=== PATIENT | female | born 1955 | race Caucasian/White ===

== ENCOUNTER 2016-09-26 19:09 | Observation (INO) | payer BC, SELFPAY ==
[~2016-09-26] VITALS: Ht 144.8 cm; Wt 83.1 kg
--- NOTE | ~2016-09-26 | HP ---
ADMIT: 09/26/2016 RM/LOC: 416 [facility] MR#: [id number] [address] [address] FELICIA DOUGLAS [address] [place] [address] History and Physical SEX: F AGE: 61 : 1955 DATE OF SERVICE: CHIEF COMPLAINT: Headache. HISTORY OF PRESENT ILLNESS: Felicia is a 61-year-old female, [facility] patient, presents to the Emergency Department with the above complaints. The patient states that last night, while at work at [email or web address], she started experiencing significant headaches. She started having a pulsating sensation in her head, bilateral protestant area. Feeling slightly nauseous, then sought care at Urgent Care. There, she had systolic blood pressures in the 190s and was told to go to the Emergency Department as they also noted some left facial droop. She was evaluated in the Emergency Department. CT scan of the head was negative. They did note slight left facial droop but otherwise no other significant stroke-like findings. Determination was made not to give her any type of thrombolytics at this time. Blood pressure was controlled and we are asked to admit for further workup and management. She really does have a past medical history significant for chronic headaches. Apparently, she has had headaches on a regular basis since concussion she sustained in 2006 when she fell in [place] on an escalator. She states this headache is different. Feels more like a migraine. Having some nausea. She does report that the headache is still there this morning but improved. No chest pain, shortness of breath, or other associated symptoms. PAST MEDICAL HISTORY: Includes posttraumatic headaches, chronic; obesity, severe; peripheral neuropathy, idiopathic; varicose veins; depression; prediabetes. MEDICATIONS: Tylenol. 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 in 2013 from a heart attack. She has three daughters. No alcohol, drug, or tobacco use. Previous smoking history. FAMILY HISTORY: Noncontributory. No history of stroke. REVIEW OF SYSTEMS: A 10-point review of systems was obtained per HPI, otherwise negative. PHYSICAL EXAMINATION: VITAL SIGNS: Blood pressure 150/79, pulse 62, respirations 14, temperature 96.9, 95% on room air. GENERAL: Alert and oriented x3. No acute distress. HEENT: Pupils equal, round, and reactive. Extraocular muscles intact. Throat clear. Trachea midline. HEART: Regular rate and rhythm. No murmurs, rubs, or gallops. LUNGS: Clear to auscultation bilaterally. No wheezes or crackles. ABDOMEN: Soft, nontender, and nondistended. No organomegaly. EXTREMITIES: Without any significant edema. NEUROLOGIC: Cranial nerves II through XII are grossly intact but does have ADMIT: 09/26/2016 RM/LOC: 416 [facility] MR#: [id number] [address] [place] [id number] MISAELFELICIA ALEJANDRA [facility] [place] [address] History and Physical SEX: F AGE: 61 : 1955 some left-sided facial droop mostly noted in the mouth. Speech is otherwise fine. No other focal deficits. LABS AND IMAGING: Essentially all normal. Slight dyslipidemia. Head CT normal. ASSESSMENT: A 61-year-old female with: 1. Headache, likely migraine versus hypertensive urgency. 2. Question of cerebrovascular accident/transient ischemic attack, CT negative. 3. Hypertension. 4. Dyslipidemia. 5. Left facial droop. 6. Obesity. 7. Noncompliance with care. PLAN: We will admit the patient Neuro protocol. Treat her for migraine headache as it seems more consistent with that. I think she has neuro involvement with this. Likely if she remains stable, discharge her on blood pressure medications along with statins, aspirin, and have a followup MRI next week as an outpatient. The patient was in agreement with this plan. Efren Navarrete MD/ pankaj JOB #: [id number] CC: Efren Navarrete, Attending Physician Efren Navarrete, Family Physician
[2016-09-29] MEDS ORDERED: LIPITOR DPS20 MG PO (11:57)
[2016-09-29] MEDS ORDERED: ASA325 MG PO (11:57)
[2016-09-29] MEDS ORDERED: GLUCOPHAGE-DPS500 MG PO (11:57)
[2016-09-29] MEDS ORDERED: ULTRAM DPS50 MG PO (11:57)
[2016-09-29] MEDS ORDERED: ZESTORETIC 10/11 TAB PO (11:57)
[2016-09-29] MEDS ORDERED: FLEXERIL-DPS10 MG PO (11:58)
[2016-09-29] MEDS ORDERED: TYLENOL DPS325 MG PO (11:58)
--- NOTE | 2016-10-14 08:26 | DS ---
ADMIT: 09/26/2016 RM/LOC: 416 [facility] MR#: [id number] [address] [address] ATIF DOUGLAS [address] [place] [address] General Discharge Summary SEX: F AGE: 61 : 1955 ADMISSION DATE: 09/26/2016 DISCHARGE DATE: 09/28/2016 FINAL DIAGNOSES: 1. Acute headache, likely migrainous. 2. Questionable cerebrovascular accident/transient ischemic attack with left facial droop. 3. Hypertension. 4. Dyslipidemia. 5. Diabetes mellitus. 6. Obesity. 7. Noncompliance with previous treatment. 8. History of chronic daily headaches. LABS AND IMAGING: Please refer to dictated records. Briefly, A1c 6.6%. Cholesterol 220, triglycerides 190, HDL 49, LDL 133, non-HDL 171. Head CT on admission was negative. REASON FOR ADMISSION: Please refer to dictated H and P. Briefly, the patient had acute onset while at work of bilateral headache, ringing in the ears, and some nausea. Went to Urgent Care. Blood pressures systolically in the 190s. Sent to ER for further imaging of her head. CT of her head was negative. She did have some left facial drooping; therefore, was admitted for further workup and management of this. HOSPITAL COURSE: The patient was admitted with routine orders telemetry. Stroke protocol. Started on aspirin. Symptoms seem more consistent with a migrainous headache with neurologic involvement. She was treated for this and headache did improve slightly. By day of discharge, the patient's left facial drooping was much improved. No other neurologic signs or symptoms. Unable to get MRI over the weekend; therefore, scheduled for an outpatient MRI/MRA. Discussed risk factors in treating these. If other further like stroke symptoms, recommended that she return to ER. There were no other major events. On day of discharge, the patient was much improved. DISCHARGE MEDICATIONS: Please refer hospital record for dosing briefly: 1. Lipitor 20 mg. 2. Lisinopril/hydrochlorothiazide 10/12.5 p.o. daily. 3. Aspirin 325 mg p.o. daily. ADMIT: 09/26/2016 RM/LOC: 416 [facility] MR#: [id number] [address] [address] ATIF DOUGLAS [address] [place] [address] General Discharge Summary SEX: F AGE: 61 : 1955 4. Metformin 500 mg p.o. daily x1 week then b.i.d. 5. Cyclobenzaprine p.r.n. 6. Ultram p.r.n. 7. Tylenol p.r.n. DISCHARGE RECOMMENDATIONS: Discussed with the patient at length. Recommended that she get MRI/MRA of her brain tomorrow as outpatient. Take medications as prescribed. Discussed signs and symptoms of further strokes. Return to ER if any of those symptoms. Follow up with Dr. Navarrete or Thursday for followup of imaging results and other medical problems. Discharge activities took approximately 35 minutes. Efren Navarrete MD/ bayronl JOB #: [id number] CC: Efren Navarrete MD, Attending Physician Efren Navarrete MD, Family Physician
--- NOTE | 2016-10-15 07:40 | ER ---
ADMIT: 09/26/2016 RM/LOC: 416 [facility] MR#: [id number] [address] [address] MISAELMILDRED RoqueLEY Konrad [address] [place], [place] [address] Emergency Room Report SEX: F AGE: 61 : 1955 DATE: 09/26/2016 ADDENDUM: See T-sheet for complete H and P. A 61-year-old female, who has chronic headaches, comes in with a severe headache in the last 2-3 hours. She states this started while she was finishing up her shift at work. It was so severe, she went to Urgent Care. When they were evaluating her, she was hypertensive with a blood pressure of 190/110, and they were concerned of possible stroke, they were sent to our facility for evaluation. She states she has not had any numbness, tingling, or weakness in the extremity, but does state that she has had what she feels like is little bit change in her speech and has some numbness in the left side of her face. She has no previous history of stroke, but does state that she had a heart attack when she was 27. She otherwise is not currently taking any medications other than occasional Tylenol. On physical exam, her stroke scale was positive for facial palsy, which was minor and mild dullness of sensation on her face for total stroke scale of 2. The remainder of physical exam was unremarkable. Her CT head showed nothing acute and her CBC, chemistries were both normal. Her blood pressure was apparently 190/110 prior to arrival here, but in our emergency department, her blood pressure has been much improved, so we did not have to treat it here. Plan at this time is to admit the patient for further workup of possible stroke with her left-sided facial droop, which is quite mild, but does appear to be present and the left-sided facial numbness. I spoke to Dr. Navarrete, who is on for [facility], who will be admitting the patient. DIAGNOSES: 1. Possible cerebrovascular accident. 2. Left-sided facial droop. 3. Acute on chronic headache. 4. Hypertensive urgency, resolved. Beny Christopher MD/ pankaj JOB #: [id number] CC: Efren Navarrete MD, Attending Physician Efren Navarrete MD, Family Physician
== END 2016-09-28 13:25 | disposition home or self-care (01) ==
LOC: ER 19:09 → 4PCU 20:50
PROVIDERS: ADMIT Family Medicine
DX: R51 Headache (principal); I10 Essential (primary) hypertension; E78.5 Hyperlipidemia, unspecified; R29.810 Facial weakness; E66.9 Obesity, unspecified; E11.9 Type 2 diabetes mellitus without complications; F32.9 Major depressive disorder, single episode, unspecified; Z79.899 Other long term (current) drug therapy; Z79.82 Long term (current) use of aspirin